=== PATIENT | female | born 1930 | race Caucasian/White ===

== ENCOUNTER → 2018-08-02 | Outpatient (CLI) | payer OTHER ==
[~2018-08-02] MED LIST: ACCUPRIL40 MG PO; AMITRIPTYLINE H25 M2 PO; ANTIVERT25 MG PO; ATORVASTATIN CA80 MG PO; BYSTOLIC 5 MG5 M1 PO; GLUCOPHAGE XR750 MG PO; INDAPAMIDE2.5 MG PO; LANTUS SUBQ; LEVOTHYROXIN0.112 M1 PO; OMEPRAZOLE20 M1 PO; PLAVIX 75 MG TA75 M1 PO
== END ==
LOC: CAT 09:49
DX: S06.0X0D Concussion without loss of consciousness, subsequent encounter (principal); E11.9 Type 2 diabetes mellitus without complications; I10 Essential (primary) hypertension; K21.9 Gastro-esophageal reflux disease without esophagitis; E78.5 Hyperlipidemia, unspecified; X58.XXXD Exposure to other specified factors, subsequent encounter

== ENCOUNTER 2018-08-10 10:52 | Emergency (ER) | payer OTHER ==
[~2018-08-10] VITALS: Ht 152.4 cm; Wt 62.6 kg
--- NOTE | ~2018-08-10 | EKG ---
[place] [address] [employer] [place] [address] ELECTROCARDIOGRAM REPORT Name: BALDEMAR MONTELONGO Room #: [facility]..#: [id number] Admission: Attend Phys: Discharge: Date of : [birth year] Report #: [id number] THIS REPORT FOR: //name// [facility] ED Test Date: 2018-08-10 Test Time: 11:33:08 Pat Name: BALDEMAR MONTELONGO Department: Room: Gender: F Auction Assistant: KKRENE : 1930 Requested By: Dre Black Order Number: [id number] MD: Measurements Intervals [place] Rate: 66 P: 9 MN: 183 QRS: -20 QRSD: 99 T: 16 QT: 407 QTc: 427 Interpretive Statements Sinus rhythm Borderline left axis deviation Borderline T wave abnormalities Compared to ECG 07/10/2016 10:16:29 T-wave abnormality now present Poor R-wave progression no longer present [email or web address] By: [id number] Epiphany Epiphany, /EPI
[~2018-08-10 10:52] MED LIST changes: -ANTIVERT25 MG PO; -LANTUS SUBQ; -PLAVIX 75 MG TA75 M1 PO
[2018-08-10] MEDS ORDERED: PLAVIX 75 MG TA75 M1 PO (11:01)
[2018-08-10] MEDS ORDERED: LANTUS SUBQ (11:11)
[2018-08-10 11:26] LABS: HEMATOCRIT 36.6 % (37.0-47.0); HEMOGLOBIN 12.8 gm/dL (12.0-15.0); LYMPHOCYTES 20.4 % (24.0-44.0); MCH 32.7 pg (26.0-34.0); MCV 93.4 fL (80.0-100.0); MONOCYTES 6.8 % (1.0-8.0); PLATELET COUNT 147 thou/uL (150-400); POLYS 69.8 % (36.0-66.0); RBC 3.92 mil/uL (4.20-5.00); RDW 12.6 % (10.5-14.5); WBC 7.2 thou/uL (4.0-11.0)
[2018-08-10 11:29] LABS: URINE BILIRUBIN NEGATIVE (Negative); URINE BLOOD NEGATIVE (Negative); URINE CLARITY CLEAR; URINE COLOR YELLOW; URINE GLUCOSE-RANDOM* 1+ (Negative); URINE KETONES NEGATIVE (Negative); URINE LEUKOCYTES-REFLEX 1+ (Negative); URINE NITRITE-REFLEX NEGATIVE (Negative); URINE PROTEIN (DIPSTICK) NEGATIVE (Negative); URINE SPECIFIC GRAVITY <= 1.005 (1.005-1.035); URINE UROBILINOGEN 0.2 E.U./dl (0.2-1.0)
[2018-08-10 11:34] LABS: ANION GAP 8 mmol/L (7-16); BUN 24 mg/dL (7-18); CALCIUM 9.5 mg/dL (8.5-10.1); CHLORIDE 98 mmol/L (98-107); CO2 23 mmol/L (21-32); CREATININE 1.4 mg/dL (0.6-1.0); GLUCOSE 205 mg/dL (74-106); POTASSIUM 4.9 mmol/L (3.5-5.1); SODIUM 129 mmol/L (136-145)
[2018-08-10 11:36] LABS: BACTERIA-REFLEX 1-9 Few /HPF (None Seen); CASTS None Seen /LPF (None Seen); CRYSTALS None Seen /LPF (None Seen); SQUAMOUS 0-3 Few /LPF (0-3); URINE RBC None Seen /HPF (0-2)
[2018-08-10 11:39] LABS: ALBUMIN 3.8 g/dL (3.4-5.0); MAGNESIUM 1.8 mg/dL (1.8-2.4); SGOT 28 U/L (15-37); SGPT 30 U/L (30-65); TOTAL BILIRUBIN 0.7 mg/dL (<0.1-1.0); TOTAL PROTEIN 7.6 g/dL (6.4-8.2); TROPONIN-I <0.06 ng/mL (<0.06)
[2018-08-10] MEDS ORDERED: ANTIVERT25 MG PO (13:58)
[2018-08-10 13:59] VITALS: BP 183/72
== END 2018-08-10 14:01 | disposition home or self-care (01) ==
LOC: ER 10:52
PROVIDERS: Emergency Medicine
DX: E11.65 Type 2 diabetes mellitus with hyperglycemia (principal); E11.22 Type 2 diabetes mellitus with diabetic chronic kidney disease; N18.9 Chronic kidney disease, unspecified; E87.1 Hypo-osmolality and hyponatremia; N39.0 Urinary tract infection, site not specified; Z95.5 Presence of coronary angioplasty implant and graft; Z79.4 Long term (current) use of insulin; Z96.653 Presence of artificial knee joint, bilateral

== ENCOUNTER 2019-02-11 09:09 | Emergency (ER) | payer OTHER ==
[~2019-02-11] VITALS: Ht 144.8 cm; Wt 59.9 kg
[~2019-02-11 09:09] MED LIST changes: +ANTIVERT25 MG PO; +LANTUS SUBQ; +PLAVIX 75 MG TA75 M1 PO
[2019-02-11] MEDS ORDERED: NORVASC2.5 MG PO (09:23)
[2019-02-11] MEDS ORDERED: SPIRONOLACTONE25 M1 PO (09:24)
[2019-02-11] MEDS ORDERED: ANTIVERT25 MG PO (09:58)
[2019-02-11] MEDS ORDERED: TRIAMCINOLONE A15 G3 TOP (09:58)
[2019-02-11 10:12] VITALS: BP 164/59
== END 2019-02-11 10:14 | disposition home or self-care (01) ==
LOC: ER 09:09
DX: E11.9 Type 2 diabetes mellitus without complications (principal); R42 Dizziness and giddiness; L30.9 Dermatitis, unspecified; Z95.5 Presence of coronary angioplasty implant and graft; Z96.653 Presence of artificial knee joint, bilateral; Z79.4 Long term (current) use of insulin

== ENCOUNTER 2019-10-12 12:12 | Emergency (ER) | payer OTHER ==
[~2019-10-12] VITALS: Ht 152.4 cm; Wt 59.9 kg
[~2019-10-12 12:12] MED LIST changes: +NORVASC2.5 MG PO; +SPIRONOLACTONE25 M1 PO; +TRIAMCINOLONE A15 G3 TOP
[2019-10-12 12:56] LABS: ABSOLUTE NEUTROPHILS 5.1 thou/uL (1.4-8.2); HEMATOCRIT 37.3 % (37.0-47.0); HEMOGLOBIN 12.3 gm/dL (12.0-15.0); LYMPHOCYTES 22.8 % (24.0-44.0); MCH 32.1 pg (26.0-34.0); MCHC 33.1 g/dL (28.0-37.0); MONOCYTES 5.8 % (1.0-8.0); PLATELET COUNT 139 thou/uL (150-400); POLYS 68.4 % (36.0-66.0); RBC 3.84 mil/uL (4.20-5.00); RDW 12.8 % (10.5-14.5); WBC 7.5 thou/uL (4.0-11.0)
[2019-10-12 12:59] LABS: ANION GAP 14 mmol/L (7-16); BUN 33 mg/dL (7-18); CHLORIDE 106 mmol/L (98-107); CO2 19 mmol/L (21-32); CREATININE 1.5 mg/dL (0.6-1.0); GLUCOSE 195 mg/dL (74-106); POTASSIUM 5.2 mmol/L (3.5-5.1); SODIUM 139 mmol/L (136-145)
[2019-10-12 13:01] LABS: URINE BILIRUBIN NEGATIVE (Negative); URINE BLOOD NEGATIVE (Negative); URINE CLARITY CLEAR; URINE COLOR YELLOW; URINE GLUCOSE-RANDOM* TRACE (Negative); URINE KETONES NEGATIVE (Negative); URINE LEUKOCYTES-REFLEX NEGATIVE (Negative); URINE NITRITE-REFLEX NEGATIVE (Negative); URINE PROTEIN (DIPSTICK) NEGATIVE (Negative); URINE SPECIFIC GRAVITY <= 1.005 (1.005-1.035); URINE UROBILINOGEN 0.2 E.U./dl (0.2-1.0)
[2019-10-12 13:07] LABS: TROPONIN-I <0.06 ng/mL (<0.06)
[2019-10-12 16:16] VITALS: BP 144/54
--- NOTE | 2019-10-13 08:24 | EKG ---
[address] [place] [address] ELECTROCARDIOGRAM REPORT Name: BALDEMAR MONTELONGO Room #: [facility] Fabby#: [id number] Admission: 10/12/19 Attend Phys: Discharge: 10/12/19 Date of : [birth year] Report #: [id number] THIS REPORT FOR: //name// [facility] ED Test Date: 2019-10-12 Test Time: 12:25:58 Pat Name: BALDEMAR MONTELONGO Department: Room: Gender: F Baggage Inspector: KATERINE : 1930 Requested By: Leydi Perry Order Number: [id number] MD: Carlo Jonas Measurements Intervals [place] Rate: 69 P: 17 [place]: 178 QRS: -18 QRSD: 101 T: 28 QT: 388 QTc: 416 Interpretive Statements Sinus rhythm Probable left atrial enlargement Borderline left axis deviation Minimal ST depression, lateral leads Compared to ECG 08/10/2018 11:33:08 ST (T wave) deviation now present T-wave abnormality no longer present Electronically Signed On 10-13-2019 8:24:42 SENIOR VISUAL DESIGNER by Carlo Jonas [email or web address] <ELECTRONICALLY SIGNED> By: Carlo Jonas MD 10/13/19 0824 1225 1225 Carlo Jonas MD /EPI
== END 2019-10-12 16:15 | disposition home or self-care (01) ==
LOC: ER 12:12
PROVIDERS: Emergency Medicine Emergency Medical Services
DX: I10 Essential (primary) hypertension (principal); R42 Dizziness and giddiness; E11.9 Type 2 diabetes mellitus without complications; Z95.5 Presence of coronary angioplasty implant and graft; Z96.653 Presence of artificial knee joint, bilateral; Z79.4 Long term (current) use of insulin

== ENCOUNTER 2020-01-22 08:35 | Emergency (ER) | payer OTHER ==
[~2020-01-22] VITALS: Ht 152.4 cm; Wt 58.7 kg
[2020-01-22 09:13] LABS: HEMATOCRIT 35.1 % (37.0-47.0); MCH 33.1 pg (26.0-34.0); MCHC 34.3 g/dL (28.0-37.0); MCV 96.6 fL (80.0-100.0); PLATELET COUNT 149 thou/uL (150-400); RBC 3.63 mil/uL (4.20-5.00); RDW 12.6 % (10.5-14.5); WBC 5.1 thou/uL (4.0-11.0)
[2020-01-22 09:19] LABS: URINE BILIRUBIN NEGATIVE (Negative); URINE BLOOD NEGATIVE (Negative); URINE CLARITY CLEAR; URINE COLOR YELLOW; URINE GLUCOSE-RANDOM* NEGATIVE (Negative); URINE KETONES NEGATIVE (Negative); URINE LEUKOCYTES-REFLEX TRACE (Negative); URINE NITRITE-REFLEX NEGATIVE (Negative); URINE PROTEIN (DIPSTICK) NEGATIVE (Negative); URINE UROBILINOGEN 0.2 E.U./dl (0.2-1.0)
[2020-01-22 09:19] LABS: ANION GAP 12 mmol/L (7-16); BUN 48 mg/dL (7-18); CALCIUM 9.5 mg/dL (8.5-10.1); CHLORIDE 107 mmol/L (98-107); CO2 18 mmol/L (21-32); CREATININE 1.5 mg/dL (0.6-1.0); GLUCOSE 154 mg/dL (74-106); POTASSIUM 3.8 mmol/L (3.5-5.1); SODIUM 137 mmol/L (136-145)
[2020-01-22 09:27] LABS: TROPONIN-I <0.06 ng/mL (<0.06)
[2020-01-22 09:37] LABS: ABSOLUTE NEUTROPHILS 3.1 thou/uL (1.4-8.2); PLATELET ESTIMATE NORMAL
[2020-01-22] MEDS ORDERED: BENTYL 10 MG CA10 M1 PO (11:02)
[2020-01-22 11:05] VITALS: BP 156/58
--- NOTE | 2020-01-23 07:53 | EKG ---
[facility] [place] [address] [place] [address] ELECTROCARDIOGRAM REPORT Name: BALDEMAR MONTELONGO Room #: [facility]#: [id number] Admission: 01/22/20 Attend Phys: Discharge: 01/22/20 Date of : [birth year] Report #: [id number] THIS REPORT FOR: cc: Sharath Torre MD, Stanley P. MD Lundgren,Alex Ball MD [facility] ~ THIS REPORT FOR: //name// [facility] ED Test Date: 2020-01-22 Test Time: 08:31:17 Pat Name: BALDEMAR MONTELONGO Department: Room: Gender: F Cutter In: [facility] : 1930 Requested By: John Dawkins Order Number: [id number] MD: Alex Rodriguez Measurements Intervals [place] Rate: 65 P: -6 NM: 180 QRS: -24 QRSD: 103 T: 27 QT: 439 QTc: 457 Interpretive Statements Sinus rhythm Nonspecific ST and T wave abnormality Borderline left axis deviation Compared to ECG 10/12/2019 12:25:58 No significant change was found Electronically Signed On 01-23-2020 7:52:21 CDT by Alex Rodriguez [email or web address] <ELECTRONICALLY SIGNED> By: Alex Rodriguez MD, [facility] 01/23/20 0752 0 Alex Rodriguez MD, [facility] /EPI
== END 2020-01-22 11:05 | disposition home or self-care (01) ==
LOC: ER 08:35
PROVIDERS: Emergency Medicine
DX: R07.89 Other chest pain (principal); R19.7 Diarrhea, unspecified; E11.9 Type 2 diabetes mellitus without complications; Z95.1 Presence of aortocoronary bypass graft; Z98.42 Cataract extraction status, left eye; Z79.899 Other long term (current) drug therapy; Z79.4 Long term (current) use of insulin; Z98.41 Cataract extraction status, right eye; Z96.653 Presence of artificial knee joint, bilateral; Z95.5 Presence of coronary angioplasty implant and graft

== ENCOUNTER → 2020-03-07 | Outpatient (CLI) | payer OTHER ==
[~2020-03-07] MED LIST changes: +BENTYL 10 MG CA10 M1 PO
== END ==
LOC: SJCVCIMAG 09:00
DX: R00.1 Bradycardia, unspecified (principal); I25.10 Atherosclerotic heart disease of native coronary artery without angina pectoris; E78.00 Pure hypercholesterolemia, unspecified; I15.9 Secondary hypertension, unspecified; E11.9 Type 2 diabetes mellitus without complications; I65.23 Occlusion and stenosis of bilateral carotid arteries; I70.1 Atherosclerosis of renal artery; Z79.4 Long term (current) use of insulin

== ENCOUNTER 2020-07-16 10:53 | Inpatient (IN) | payer OTHER ==
[~2020-07-16] VITALS: Ht 152.4 cm; Wt 53.5 kg
[~2020-07-16 10:53] MED LIST changes: -NORVASC2.5 MG PO; +NORVASC5 MG PO
[2020-07-16 10:54] VITALS: BP 129/79
[2020-07-16 11:28] LABS: HEMATOCRIT 31.3 % (37.0-47.0); HEMOGLOBIN 11.2 gm/dL (12.0-15.0); MCH 33.2 pg (26.0-34.0); MCHC 35.9 g/dL (28.0-37.0); MCV 92.3 fL (80.0-100.0); PLATELET COUNT 194 thou/uL (150-400); RBC 3.39 mil/uL (4.20-5.00); RDW 12.6 % (10.5-14.5); WBC 6.3 thou/uL (4.0-11.0)
[2020-07-16 11:45] LABS: ALBUMIN 3.1 g/dL (3.4-5.0); CALCIUM 8.4 mg/dL (8.5-10.1); CREATININE 1.2 mg/dL (0.6-1.0); TOTAL BILIRUBIN 0.7 mg/dL (0.2-1.0); TOTAL PROTEIN 6.5 g/dL (6.4-8.2)
[2020-07-16 11:49] LABS: POTASSIUM 2.5 mmol/L (3.5-5.1)
[2020-07-16 12:40] LABS: URINE BILIRUBIN NEGATIVE (Negative); URINE BLOOD NEGATIVE (Negative); URINE CLARITY CLEAR; URINE COLOR YELLOW; URINE GLUCOSE-RANDOM* NEGATIVE (Negative); URINE KETONES NEGATIVE (Negative); URINE LEUKOCYTES-REFLEX NEGATIVE (Negative); URINE NITRITE-REFLEX NEGATIVE (Negative); URINE PROTEIN (DIPSTICK) NEGATIVE (Negative); URINE UROBILINOGEN 0.2 E.U./dl (0.2-1.0)
[2020-07-16 12:47] LABS: ABSOLUTE NEUTROPHILS 4.2 thou/uL (1.4-8.2); PLATELET ESTIMATE NORMAL
--- NOTE | 2020-07-16 12:48 | EKG ---
[facility] [place] [address] [place] [address] ELECTROCARDIOGRAM REPORT Name: ROLY MONTELONGOJENNIFER Mendez Room #: [facility]#: [id number] Admission: 07/16/20 Attend Phys: Discharge: Date of : [birth year] Report #: [id number] THIS REPORT FOR: cc: Sharath Torre MD, Stanley P. MD Santiago, Patrick MD [facility] ~ THIS REPORT FOR: //name// [facility] ED Test Date: 2020-07-16 Test Time: 11:49:58 Pat Name: BALDEMAR MONTELONGO Department: Room: Gender: F Director Decision Support: kf : 1930 Requested By: Carlos Alberto Bingham Order Number: [id number] MD: Angel Luis López Measurements Intervals [place] Rate: 53 P: -14 WI: 224 QRS: -26 QRSD: 109 T: 179 QT: 410 QTc: 385 Interpretive Statements Sinus rhythm Probable left atrial enlargement Abnormal R-wave progression, late transition LVH with secondary repolarization abnormality Compared to ECG 01/22/2020 08:31:17 Left ventricular hypertrophy now present Early repolarization now present ST (T wave) deviation no longer present Electronically Signed On 07-16-2020 12:48:24 CDT by Angel Luis López [email or web address] <ELECTRONICALLY SIGNED> By: Angel Luis López MD, FAC 07/16/20 1248 1149 1149 Angel Luis López MD, [facility] /EPI
[2020-07-16 13:57] VITALS: BP 163/53
[2020-07-16 14:55] VITALS: BP 166/56
--- NOTE | 2020-07-16 19:38 | NUR ---
PATIENT ADMITTED FROM ER WITH WEAKNESS AND DIARRHEA, ALSO HYPOKALEMIA. PATIENT ALERT WITH CONFUSION. PATIENT IS A FALL RISK, PATIENT INSTRUCTED TO CALL FOR ASSISTANCE. PATIENT IS UP WITH SBA AND GAIT BELT. PATIENT DENIES PAIN, BUT AT THE END OF ADMISSION PATIENT C/O RIGHT GROIN DISCOMFORT. SPOKE WITH DAUGHTER/MERON AND SHE STATED PATIENT FELL YESTERDAY, X-RAY DONE RIGHT ANKLE, BUT DAUGHTER STATES COULD WE X-RAY HER RIGHT GROIN. PATIENT HAS 2 IV'S, RIGHT IV STARTED IV FLUIDS AT 100CC/HR. THIS RN GAVE SOME MEDS BUT INFORMED IRVING/PRIMARY NURSE THAT THERE ARE STILL MEDS THAT NEED TO BE GIVEN. REPORT GIVEN TO IRVING/PAOLO.
[2020-07-16 20:05] VITALS: BP 152/59
[2020-07-17 00:36] VITALS: BP 185/66
--- NOTE | 2020-07-17 00:44 | NUR ---
ELEVATED BP REPORTED TO WALLET ASSEMBLER, RECHECK AND CALL BACK IF HTN PERSISTS
[2020-07-17 05:23] VITALS: BP 160/57
[2020-07-17 05:28] LABS: HEMATOCRIT 31.7 % (37.0-47.0); HEMOGLOBIN 10.8 gm/dL (12.0-15.0); MCV 93.9 fL (80.0-100.0); PLATELET COUNT 172 thou/uL (150-400); RBC 3.37 mil/uL (4.20-5.00); RDW 12.7 % (10.5-14.5); WBC 5.6 thou/uL (4.0-11.0)
[2020-07-17 05:44] LABS: CALCIUM 8.4 mg/dL (8.5-10.1); CREATININE 1.4 mg/dL (0.6-1.0); MAGNESIUM 2.1 mg/dL (1.8-2.4); POTASSIUM 3.4 mmol/L (3.5-5.1)
[2020-07-17 07:08] LABS: LARGE PLATELETS FEW
--- NOTE | 2020-07-17 07:12 | NUR ---
ASSUMED PT CARE AROUND 1999. AXOX3 WITH CONFUSION. ABNORBAL VS ADDRESSED TO QA TECH. NNO AT THIS TIME. BOWEL PREP COMPLETED. R HIP XR ORDERED PER QA TECH. KEPT NPO FOR COLONOSCOPY IN AM. NO S/S ACUTE DISTRESS NOTED OR REPORTED AT THIS TIME. CARE TRANSFERRED TO INCOMING RN AT THIS TIME.
[2020-07-17 07:45] VITALS: BP 150/37
--- NOTE | 2020-07-17 11:23 | NUR ---
Assumed patient care at 0715. Vital signs stable, LSCTA, ABD is soft and non-tender, BS x's 4, skin is clean, warm, dry and intact; she denies pain. Patient has had no adverse reactions to the IV ABT Therapy. She is pleasant, alert and oriented x's 4 with some noted confusion from time to time. Daughter is at bedside. GI Team here to assess patient. They approve for patient to be Discharged today and agree that there is no need for a Colonoscopy at this time. Waiting for Dr Valenzuela to call for conformation. Dr Valenzuela returned call, want's patient to start on a Regular Diet to see how she tolerates this. Dr Valenzuela also wants PT and OT to work with patient. Plan now is to Discharge patient tomorrow.
[2020-07-17 13:50] VITALS: BP 118/67
[2020-07-17 20:15] VITALS: BP 153/62
--- NOTE | 2020-07-18 04:27 | NUR ---
ASSUMED CARE OF PT AT 1900HRS. PT AOX3-4 AND LETS NEEDS BE KNOWN. FALL PRECAUTION IN PLACE. PT IS NOT ALWAYS COMPLIENT WITH FALL PRECAUTIONS. PT DENIED PAIN, NAUSEA OR SOA. ASSESSMENT CHARTED. PT RUNS SR/SB ON TELE. PT WAS ABLE TO GET COMFORTABLE AND SLEEP PART OF THE SHIFT. VSS AND NO S/S OF ACUE DISTRESS. WILL CONTINUE TO MONITOR FOR CHANGES.
[2020-07-18 08:00] VITALS: BP 171/72
--- NOTE | 2020-07-18 10:57 | NUR ---
PT ADMITTED RELATED TO DIARRHEA, ANKLE PAIN/RIGHT GROIN PAIN S/P FALL, ARF. CM REVIEWED CHART AND SPOKE WITH CARE TEAM. CM CALLED AND SPOKE WITH PT THIS DAY. PT APPEARED TO BE A&O X4. CM ROLE INTORDUCED. PT INDICATED SHE LIVES IN A HOUSE AND THAT HER SON LIVES WITH HER. SHE INDICATED 1 STEP TO ENTER AND NONE INDSIDE SHE USES. 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 PT INDICATED SHE HAS A FWW IF NEEDED AT HOME. PT WAS RECEPTIVE TO SERVICES. SHE INDICATED NO PREFERENCE FOR PROVIDERS. REFERRAL SENT TO [facility]. MATIASE THAT PT WILL DISCHARGE HOME THIS DAY.
[2020-07-18 11:00] VITALS: BP 153/62
[2020-07-18 11:15] VITALS: BP 171/72
[2020-07-18] MEDS ORDERED: METAMUCIL FIBE3.4 GM PO (11:38)
[2020-07-18] MEDS ORDERED: HUMALOG100 UNIT/1 SUBQ (11:38)
--- NOTE | 2020-07-18 11:50 | NUR ---
ASSUMED CARE OF PATIENT AT SHIFT CHANGE. ASSESSMENT CHARTED. MEDS GIVEN PER MAR. VSS; PATIENT IS A&OX4, FAMILY AT BEDSIDE, NO ISSUES VOICED. PROVIDER CLEARED PATIENT TO DISCHARGE TODAY. FALL PRECAUTIONS IN PLACE; WILL CONTINUE TO MONITOR.
--- NOTE | 2020-07-18 12:44 | NUR ---
I AGREE WITH NURSING ASSESSMENT DONE BY MICK/OPTIMIZATION ANALYST.
--- NOTE | 2020-07-18 14:51 | NUR ---
FAXED REFERRAL TO [facility] SPOKE WITH NEEL IN INTAKE SHE CAN ACCEPT FOR HH. FAXED DC ORDERS/SUMMARY RECEIVED CONFIRMATION AND [facility] WILL NOTIFY TO ARRANGE VISITS.
== END 2020-07-18 12:30 | disposition home health service (06) | DRG 683 ==
LOC: ER 10:53 → 4W 13:24 → EROBS 13:24 → 4W 15:00
PROVIDERS: Emergency Medicine; Nurse Practitioner; ADMIT Hospitalist; ATTEND Hospitalist
DX: N17.9 Acute kidney failure, unspecified (principal); E44.1 Mild protein-calorie malnutrition; R19.7 Diarrhea, unspecified; E87.6 Hypokalemia; E87.5 Hyperkalemia; E86.0 Dehydration; E11.9 Type 2 diabetes mellitus without complications; I25.10 Atherosclerotic heart disease of native coronary artery without angina pectoris; I10 Essential (primary) hypertension; E78.5 Hyperlipidemia, unspecified; E03.9 Hypothyroidism, unspecified; E55.9 Vitamin D deficiency, unspecified; R63.4 Abnormal weight loss; K57.90 Diverticulosis of intestine, part unspecified, without perforation or abscess without bleeding; R53.1 Weakness; Z96.653 Presence of artificial knee joint, bilateral; Z96.1 Presence of intraocular lens; Z20.828 Contact with and (suspected) exposure to other viral communicable diseases; Z95.5 Presence of coronary angioplasty implant and graft; Z95.1 Presence of aortocoronary bypass graft; Z98.42 Cataract extraction status, left eye; Z98.41 Cataract extraction status, right eye; Z79.4 Long term (current) use of insulin; Z79.01 Long term (current) use of anticoagulants; Z79.899 Other long term (current) drug therapy; Z68.23 Body mass index [BMI] 23.0-23.9, adult
CPT/HCPCS: 10045